=== PATIENT | male | born 1990 | race Two or more races ===

== ENCOUNTER 2021-05-28 18:44 | Inpatient (IN) | payer SELFPAY ==
[~2021-05-28] VITALS: Ht 180.3 cm; Wt 76.2 kg
[2021-05-28] MEDS ORDERED: LEVETIRACETAM 500MG PREMIX 100 ML IV ONE (19:15)
[2021-05-28 19:26] LABS: HEMATOCRIT. 46.7 % (42.0-52.0); HEMOGLOBIN. 16.1 g/dL (14.0-18.0); MEAN CORPUSCULAR HEMOGLOBIN 31.2 pg (28.0-32.0); MEAN CORPUSCULAR VOLUME 90.6 fL (80.0-94.0); MEAN PLATELET VOLUME 8.7 fl (7.4-10.4); PLATELET 244 x1000/uL (130-400); RED BLOOD CELL COUNT 5.16 mill/uL (4.7-6.1); RED CELL DISTRIBUTION WIDTH 13.7 % (11.6-14.6)
[2021-05-28 19:41] LABS: CHLORIDE 106 mEq/L (98-107)
[2021-05-28 19:46] LABS: ETHANOL BLOOD < 10 mg/dL
[2021-05-28 21:18] LABS: CLARITY URINE TURBID (CLEAR); COLOR URINE YELLOW (YELLOW); KETONES URINE 2+ (NEGATIVE); LEUKOCYTE ESTERASE URINE NEGATIVE (NEGATIVE); NITRITE URINE NEGATIVE (NEGATIVE); OCCULT BLOOD URINE NEGATIVE (NEGATIVE); PH URINE 5.5 (4.5-8.0); PROTEIN URINE 1+ (NEGATIVE); SPECIFIC GRAVITY URINE 1.026 (1.005-1.030); UROBILINOGEN URINE 0.2 E.U./dL (0.2-1.0)
[2021-05-28 21:20] LABS: PLATELET ESTIMATE NORMAL
[2021-05-28 21:29] LABS: *AMPHETAMINES SCREEN URINE NEGATIVE (NEGATIVE); *BARBITURATES SCREEN URINE NEGATIVE (NEGATIVE); *BENZODIAZEPINES SCREEN URINE PRESUMTIVE POSITIVE (NEGATIVE); *COCAINE SCREEN URINE NEGATIVE (NEGATIVE); CANNABINOID URINE SCREEN PRESUMTIVE POSITIVE (NEGATIVE); METHADONE URINE SCREEN NEGATIVE (NEGATIVE); OPIATES URINE SCREEN NEGATIVE (NEGATIVE); PHENCYCLIDINE URINE SCREEN NEGATIVE (NEGATIVE)
[2021-05-29 02:00] VITALS: BP 113/62
[2021-05-29 04:00] VITALS: BP 108/65
[2021-05-29 08:00] VITALS: BP 122/61
[2021-05-29] MEDS ORDERED: ONDANSETRON HCL 4MG/2ML INJ IV PRN (08:45)
[2021-05-29] MEDS ORDERED: GADOTERATE MEGLUMINE 5 MMOL/10 ML VIAL IV ONE (08:59)
[2021-05-29] MEDS: LEVETIRACETAM 500MG/5ML CUP PO SCH ×2 (10:28→22:11)
[2021-05-29] MEDS: LACTATED RINGERS 1,000 ML IV SCH (10:29)
[2021-05-29 12:00] VITALS: BP 117/79
[2021-05-29 16:00] VITALS: BP 115/75
[2021-05-29 16:38] LABS: BASOPHILS % 0.5 % (0.0-2.0); EOSINOPHILS % 0.2 % (0.0-5.0); HEMATOCRIT. 41.5 % (42.0-52.0); HEMOGLOBIN. 14.5 g/dL (14.0-18.0); LYMPHOCYTES % 16.5 % (20.0-50.0); MEAN CORPUSCULAR HEMOGLOBIN 31.5 pg (28.0-32.0); MEAN CORPUSCULAR VOLUME 90.2 fL (80.0-94.0); MEAN PLATELET VOLUME 9.3 fl (7.4-10.4); MONOCYTES % 6.6 % (2.0-8.0); NEUTROPHILS % 76.2 % (40.0-76.0); PLATELET 204 x1000/uL (130-400); RED BLOOD CELL COUNT 4.61 mill/uL (4.7-6.1); RED CELL DISTRIBUTION WIDTH 13.6 % (11.6-14.6)
[2021-05-29 16:41] LABS: INR 1.1; PROTHROMBIN TIME 11.4 sec (9.6-11.0)
[2021-05-29 16:50] LABS: CHLORIDE 106 mEq/L (98-107)
[2021-05-29 20:00] VITALS: BP 122/68
[2021-05-30] VITALS: BP 115/69
[2021-05-30] MEDS: LACTATED RINGERS 1,000 ML IV SCH (00:08)
[2021-05-30 04:00] VITALS: BP 109/67
[2021-05-30] MEDS ORDERED: KEPP500 MT (07:05)
[2021-05-30] MEDS: LEVETIRACETAM 500MG/5ML CUP PO SCH (07:53)
[2021-05-30 08:00] VITALS: BP 118/63
[2021-05-30 12:00] VITALS: BP 100/60
[2021-05-30 13:11] VITALS: BP 119/71
== END 2021-05-30 14:15 | disposition home or self-care (01) | DRG 53 ==
LOC: ER 20:59 → 8WST 23:30 → EDBD 23:30 → ENRESERV 05-29 00:38
PROVIDERS: ADMIT Family Medicine; ATTEND Family Medicine
DX: G40.909 Epilepsy, unspecified, not intractable, without status epilepticus (principal); C71.9 Malignant neoplasm of brain, unspecified
CPT/HCPCS: 36415; 70553; 71045; 80053; 80305; 80320; 81003; 82140; 85025; 99291; A9577; J1953; J7120; G0480